=== PATIENT | female | born 1955 | race Caucasian/White ===

== ENCOUNTER → 2018-04-25 | Outpatient (CLI) | payer BC ==
--- NOTE | 2018-04-25 13:55 | MM ---
Reason for exam: additional evaluation requested from prior study. Last mammogram was performed 1 year ago. History: Patient is postmenopausal, has history of breast cancer at age 56, and is nulliparous. Family history of breast cancer in mother at age 60. Malignant left breast needle localization of the left breast, September 28, 2011. Lumpectomy of the left breast, September 28, 2011. Malignant left mammotome panel of the left breast, September 01, 2011. Cyst aspiration of the left breast, July 2010. Cyst aspiration, 2005. Cyst aspiration, 2002. Benign stereotactic core biopsy of the left breast, March 04, 2001. Benign core biopsy of the left breast, 2000. Took hormonal contraceptives for 15 years. Took other hormone for 5 years beginning at age 56. Physical Findings: Nurse did not find any significant physical abnormalities on exam. MG 3D Diag Mammo W/Cad [facility] Bilateral CC, MLO, and XCCL view(s) were taken. Prior study comparison: April 22, 2017, bilateral MG 3d diag mammo w/cad [facility]. April 20, 2016, bilateral MG 3d diag mammo w/cad [facility]. The breast tissue is extremely dense which could obscure a lesion on mammography. Stable benign calcifications. Stable post operative changes. No significant new findings when compared with previous films. These results were verbally communicated with the patient and result sheet given to the patient on 04/25/18. ASSESSMENT: Benign, BI-RAD 2 RECOMMENDATION: Follow-up diagnostic mammogram of both breasts in 1 year.
== END | disposition home or self-care (01) ==
LOC: RADMAMWWP 12:48
PROVIDERS: ATTEND Surgery
DX: R92.8 Other abnormal and inconclusive findings on diagnostic imaging of breast (principal)
CPT/HCPCS: 77062; 77066

== ENCOUNTER → 2019-04-26 | Outpatient (CLI) | payer BC, OTHER ==
--- NOTE | 2019-04-27 11:12 | MM ---
Reason for exam: screening (asymptomatic). Last mammogram was performed 1 year ago. History: Patient is postmenopausal, has history of breast cancer at age 56, and is nulliparous. Family history of breast cancer in mother at age 60. Malignant left breast needle localization of the left breast, September 28, 2011. Lumpectomy of the left breast, September 28, 2011. Malignant left mammotome panel of the left breast, September 01, 2011. Cyst aspiration of the left breast, July 2010. Cyst aspiration, 2005. Cyst aspiration, 2002. Benign stereotactic core biopsy of the left breast, March 04, 2001. Benign core biopsy of the left breast, 2000. Took hormonal contraceptives for 15 years. Took other hormone for 5 years beginning at age 56. Physical Findings: A clinical breast exam by your physician is recommended on an annual basis and results should be correlated with mammographic findings. MG 3D Screening Mammo W/Cad Bilateral CC and MLO view(s) were taken. Prior study comparison: April 25, 2018, bilateral MG 3d diag mammo w/cad [facility]. April 22, 2017, bilateral MG 3d diag mammo w/cad [facility]. The breast tissue is extremely dense which could obscure a lesion on mammography. Stable benign calcifications bilaterally. Stable post operative changes left breast. No significant changes when compared with prior studies. ASSESSMENT: Benign, BI-RAD 2 RECOMMENDATION: Routine screening mammogram of both breasts in 1 year.
== END | disposition home or self-care (01) ==
LOC: RADMAMWWP 10:48
PROVIDERS: ATTEND Surgery
DX: Z08 Encounter for follow-up examination after completed treatment for malignant neoplasm (principal); Z85.3 Personal history of malignant neoplasm of breast
CPT/HCPCS: 77063; 77067

== ENCOUNTER → 2020-04-29 | Outpatient (CLI) | payer OTHER ==
--- NOTE | 2020-05-01 10:30 | MM ---
Reason for exam: screening (asymptomatic). Last mammogram was performed 1 year ago. History: Patient is postmenopausal, has history of breast cancer at age 56, and is nulliparous. Family history of breast cancer in mother at age 60. Malignant left breast needle localization of the left breast, September 28, 2011. Lumpectomy of the left breast, September 28, 2011. Malignant left mammotome panel of the left breast, September 01, 2011. Cyst aspiration of the left breast, July 2010. Cyst aspiration, 2005. Cyst aspiration, 2002. Benign stereotactic core biopsy of the left breast, March 04, 2001. Benign core biopsy of the left breast, 2000. Took hormonal contraceptives for 15 years. Took other hormone for 5 years beginning at age 56. Physical Findings: A clinical breast exam by your physician is recommended on an annual basis and results should be correlated with mammographic findings. MG 3D Screening Mammo W/Cad Bilateral CC and MLO view(s) were taken. Prior study comparison: April 26, 2019, bilateral MG 3d screening mammo w/cad. April 25, 2018, bilateral MG 3d diag mammo w/cad [facility]. The breast tissue is heterogeneously dense. This may lower the sensitivity of mammography. Finding: Architectural distortion in the upper quadrant, middle, posterior position of the left breast consistent with known lumpectomy changes. Previous mammotome biopsy in the left breast. There is no discrete abnormality. ASSESSMENT: Benign, BI-RAD 2 RECOMMENDATION: Routine screening mammogram of both breasts in 1 year.
== END | disposition home or self-care (01) ==
LOC: RADMAMWWP 13:30
PROVIDERS: ATTEND Surgery
DX: Z08 Encounter for follow-up examination after completed treatment for malignant neoplasm (principal); Z85.3 Personal history of malignant neoplasm of breast
CPT/HCPCS: 77063; 77067

== ENCOUNTER → 2021-05-02 | Outpatient (CLI) | payer OTHER ==
--- NOTE | 2021-05-05 12:01 | MM ---
Reason for exam: screening (asymptomatic). Last mammogram was performed 1 year ago. History: Patient is postmenopausal, has history of breast cancer at age 56, and is nulliparous. Family history of breast cancer in mother at age 60. Malignant left breast needle localization of the left breast, September 28, 2011. Lumpectomy of the left breast, September 28, 2011. Malignant left mammotome panel of the left breast, September 01, 2011. Cyst aspiration of the left breast, July 2010. Cyst aspiration, 2005. Cyst aspiration, 2002. Benign stereotactic core biopsy of the left breast, March 04, 2001. Benign core biopsy of the left breast, 2000. Took hormonal contraceptives for 15 years. Took other hormone for 5 years beginning at age 56. Physical Findings: A clinical breast exam by your physician is recommended on an annual basis and results should be correlated with mammographic findings. MG 3D Screening Mammo W/Cad Bilateral CC and MLO view(s) were taken. Prior study comparison: April 29, 2020, bilateral MG 3d screening mammo w/cad. April 26, 2019, bilateral MG 3d screening mammo w/cad. April 25, 2018, bilateral MG 3d diag mammo w/cad [facility]. The breast tissue is heterogeneously dense. This may lower the sensitivity of mammography. No significant changes when compared with prior studies. ASSESSMENT: Benign, BI-RAD 2 RECOMMENDATION: Routine screening mammogram of both breasts in 1 year.
== END | disposition home or self-care (01) ==
LOC: RADMAMWWP 07:18
PROVIDERS: ATTEND Surgery
DX: Z12.31 Encounter for screening mammogram for malignant neoplasm of breast (principal); Z80.3 Family history of malignant neoplasm of breast; Z78.0 Asymptomatic menopausal state
CPT/HCPCS: 77063; 77067

== ENCOUNTER → 2022-05-04 | Outpatient (CLI) | payer MEDICARE ==
--- NOTE | 2022-05-05 17:52 | MM ---
Reason for Exam: Screening (asymptomatic). Last screening mammogram was performed 12 month(s) ago. Patient History: Menarche at age 13. Patient has no children. Left ovary removed at age 56. Right ovary removed at age 56. Hysterectomy at age 56. Postmenopausal. Breast cancer, left, age 56. Patient used Hormonal Contraceptives for 15 years. 09/28/2011, Lumpectomy on the Left side. 2005, Cyst Aspiration. 2002, Cyst Aspiration. 07/2010, Cyst Aspiration on the Left side. 2000, Benign Core Biopsy on the left side. 09/28/2011, Malignant Excisional Biopsy on the left side. 09/01/2011, Malignant Core Biopsy on the left side. 03/04/2001, Benign Stereotactic Core Biopsy on the left side. Mother had breast cancer, age 60. Prior Study Comparison: 08/24/1989 Screening Mammogram, Unknown. 04/17/2015 Bilateral Diagnostic Mammogram, [facility]. 04/22/2017 Bilateral Diagnostic Mammogram, [facility]. 04/25/2018 Bilateral Diagnostic Mammogram, [facility]. 04/26/2019 Bilateral Screening Mammogram, [facility] 04/29/2020 Bilateral Screening Mammogram, [facility]. 05/02/2021 Bilateral Screening Mammogram, [facility]. Tissue Density: The breast tissue is extremely dense which could obscure a lesion on mammography. Findings: Analyzed By CAD. Surgical changes within the 12:00 left breast. Scattered benign calcifications are present bilaterally. No significant interval change is evident. No suspicious groups of microcalcifications, spiculated or lobular masses, architectural distortion or other secondary signs of malignancy are mammographically apparent. Overall Assessment: Benign, BI-RAD 2 Management: Screening Mammogram of both breasts in 1 year. A negative mammogram report should not preclude additional follow up of suspicious palpable abnormalities. Patient should continue monthly self breast exam. A clinical breast exam by your physician is recommended on an annual basis and results should be correlated with mammographic findings. Electronically signed and approved by: Arnaud Magallanes D.O. Radiologis
== END | disposition home or self-care (01) ==
LOC: RADMAMWWP 10:48
PROVIDERS: ATTEND Surgery
DX: Z12.31 Encounter for screening mammogram for malignant neoplasm of breast (principal); Z78.0 Asymptomatic menopausal state; Z80.3 Family history of malignant neoplasm of breast
CPT/HCPCS: 77063; 77067

== ENCOUNTER → 2023-05-05 | Outpatient (CLI) | payer MEDICARE ==
--- NOTE | 2023-05-05 13:47 | MM ---
Reason for Exam: Screening (asymptomatic). Last mammogram was performed 1 year(s) and 1 month(s) ago. Patient History: Menarche at age 13. Patient has no children. Left ovary removed at age 56. Right ovary removed at age 56. Hysterectomy at age 56. Postmenopausal. Breast cancer, left, age 56. Patient used Hormonal Contraceptives for 15 years. 09/28/2011, Lumpectomy on the Left side. 2005, Cyst Aspiration. 2002, Cyst Aspiration. 07/2010, Cyst Aspiration on the Left side. 2000, Benign Core Biopsy on the left side. 09/28/2011, Malignant Excisional Biopsy on the left side. 09/01/2011, Malignant Core Biopsy on the left side. 03/04/2001, Benign Stereotactic Core Biopsy on the left side. Mother had breast cancer, age 60. Prior Study Comparison: 04/20/2016 Bilateral Diagnostic Mammogram, [facility]. 04/22/2017 Bilateral Diagnostic Mammogram, [facility]. 04/25/2018 Bilateral Diagnostic Mammogram, [facility]. 04/26/2019 Bilateral Screening Mammogram, [facility]. 04/29/2020 Bilateral Screening Mammogram, [facility]. 05/02/2021 Bilateral Screening Mammogram, [facility]. 05/04/2022 Bilateral MG 3D screening mammo w/cad, [facility]. Tissue Density: The breast tissue is extremely dense which could obscure a lesion on mammography. Findings: Analyzed By CAD. There is no suspicious group of microcalcifications or new suspicious mass in either breast. Postsurgical changes redemonstrated in the left breast. Benign calcifications within both breasts. Biopsy marker within the left breast. No significant change from prior exams. Overall Assessment: Benign, BI-RAD 2 Management: Screening Mammogram of both breasts in 1 year. A clinical breast exam by your physician is recommended on an annual basis and results should be correlated with mammographic findings. Electronically signed and approved by: Romario Astudillo D.O.
== END | disposition home or self-care (01) ==
LOC: RADMAMWWP 11:05
PROVIDERS: ATTEND Family Medicine
DX: Z12.31 Encounter for screening mammogram for malignant neoplasm of breast (principal); Z80.3 Family history of malignant neoplasm of breast; Z78.0 Asymptomatic menopausal state; Z85.3 Personal history of malignant neoplasm of breast
CPT/HCPCS: 77063; 77067

== ENCOUNTER → 2024-11-10 | Outpatient (CLI) | payer MEDICARE ==
--- NOTE | 2024-11-10 11:50 | MM ---
Reason for Exam: Screening (asymptomatic). Last mammogram was performed 1 year(s) and 6 month(s) ago. Patient History: Menarche at age 13. Patient has no children. Left ovary removed at age 56. Right ovary removed at age 56. Hysterectomy at age 56. Postmenopausal. Breast cancer, left, age 56. Patient used Hormonal Contraceptives for 15 years. 09/28/2011, Lumpectomy on the Left side. 2005, Cyst Aspiration. 2002, Cyst Aspiration. 07/2010, Cyst Aspiration on the Left side. 2000, Benign Core Biopsy on the left side. 09/28/2011, Malignant Excisional Biopsy on the left side. 09/01/2011, Malignant Core Biopsy on the left side. 03/04/2001, Benign Stereotactic Core Biopsy on the left side. Mother had breast cancer, age 60. Prior Study Comparison: 05/02/2021 Bilateral Screening Mammogram, [facility]. 05/04/2022 Bilateral MG 3D screening mammo w/cad, [facility]. 05/05/2023 Bilateral MG 3D screening mammo w/cad, [facility]. Tissue Density: The breasts are heterogeneously dense, which may obscure small masses. Findings: Analyzed By CAD. Left breast biopsy clip. Right breast: There is no suspicious group of microcalcifications or new suspicious mass. Benign-appearing calcifications right breast. Left breast: There is no suspicious group of microcalcifications or new suspicious mass. Benign-appearing calcifications left breast. Overall Assessment: Benign, BI-RAD 2 Management: Screening Mammogram of both breasts in [address] [facility] will attempt to contact patient to return for supplemental views and ultrasound if indicated. Patient should continue monthly self-breast exams. A clinical breast exam by your physician is recommended on an annual basis. This exam should not preclude additional follow-up of suspicious palpable abnormalities. Note on Skylar scores and lifetime risk: 1. A Skylar score greater than 3% is considered moderate risk. If this is the case, consider specialist referral to assess eligibility for a risk reducing agent. 2. If overall lifetime risk for the development of breast cancer is 20% or higher, the patient may qualify for future screening with alternating mammogram and breast MRI. [facility], , 11/10/2024 11:46 AM. Electronically signed and approved by: Tevin Lan DO
--- NOTE | 2024-11-10 11:54 | BD ---
EXAMINATION TYPE: Axial Bone Density DATE OF EXAM: 11/10/2024 CLINICAL HISTORY: 69 years old Female. ICD-10 CODE: Z13.820ENCOUNTER FOR SCREENING FOR OSTEOPOROSIS , Additional History: Height: 63 Weight: 119.1 FRAX RISK QUESTIONS: Alcohol (3 or more units per day): no Family History (Parent hip fracture): father Glucocorticoids (More than 3mos): no (Ex: prednisone, prednisolone, methylprednisolone, dexamethasone, and hydrocortisone). History of Fracture in Adulthood: no Secondary Osteoporosis: 1. Type 1 Diabetes: no 2. Hyperthyroidism: no 3. Menopause before 45: no 4. Malnutrition: no 5. Chronic liver disease: no Rheumatoid Arthritis: no Current Tobacco Use: no RISK FACTORS HISTORY OF: Hip Fracture (Right/Left): no Spine Fracture: no History of Wrist Fracture: no Surgery to Spine/Hip(right/left)/Wrist (right/left): no MEDICATIONS: Thyroid Medications: no Osteoporosis Medications: no EXAM MEASUREMENTS: Bone mineral densitometry was performed using the tolingo System. Bone mineral density as measured about the Lumbar spine is: ----- L1-L4(G/cm2): 0.958 T Score Values are as follows: ----- L1: -1.7 ----- L2: -2.3 ----- L3: -1.6 ----- L4: -2.0 ----- L1-L4: -1.9 Z Score Values are as follows: ----- L1: 0.3 ----- L2: -0.3 ----- L3: 0.3 ----- L4: 0.0 ----- L1-L4: 0.1 Bone mineral density has: increased 2.8 % since study of: 11/09/2022 Bone mineral density about the R hip (g/cm2): 0.869 Bone mineral density about the L hip (g/cm2): 0.892 T Score values are as follows: -----R Neck: -1.1 -----L Neck: -1.0 -----R Total: -1.1 -----L Total: -0.9 Z Score values are as follows: -----R Neck: 0.7 -----L Neck: 0.8 -----R Total: 0.5 -----L Total: 0.7 Bone mineral density has: decreased -6.8 % since study of: 11/09/2022 FRAX%s: The graph provided illustrates a 13.5% chance for a major osteoporotic fx and a 1.1% chance f or the hips probability for fx in 10 years time. IMPRESSION: Osteopenia (T Score between -2.5 and -1). There is slightly increased risk of fracture and the patient may be considered for treatment. Re-Screen 2-5 years. NOTE: T-SCORE=SD OF THE YOUNG ADULT MEAN. [facility], , 11/10/2024 11:52 AM
== END | disposition home or self-care (01) ==
LOC: RADMAMWWP 11:04
PROVIDERS: ATTEND Family Medicine
DX: Z12.31 Encounter for screening mammogram for malignant neoplasm of breast (principal); Z13.820 Encounter for screening for osteoporosis; M85.89 Other specified disorders of bone density and structure, multiple sites; R92.333 Mammographic heterogeneous density, bilateral breasts; Z78.0 Asymptomatic menopausal state; Z80.3 Family history of malignant neoplasm of breast; Z85.3 Personal history of malignant neoplasm of breast
CPT/HCPCS: 77063; 77067; 77080